=== PATIENT | male | born 1965 | race Caucasian/White ===

== ENCOUNTER 2021-08-22 01:57 | Emergency (ER) | payer SELFPAY ==
--- NOTE | 2021-08-22 02:20 | EDM.PDOC ---
ED HPI GENERAL MEDICAL PROBLEM - General Chief Complaint: Upper Extremity Injury/Pain Stated Complaint: RIGHT ELBOW/FOREARM STRAIN Time Seen by Provider: 08/22/21 02:12 Source of Information: Reports: Patient History Limitations: Reports: No Limitations - History of Present Illness INITIAL COMMENTS - FREE TEXT/NARRATIVE: Patient presents to the ED from [facility]. 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 It did not move much so he gave a forceful shove and suddenly felt a " pop" in the right medial elbow area. This happened at about 23:00. He took some NSAIDS and continued to work. It cause he pain but no numbness or tingling. As his shift progressed he had significant pain and difficulty lifting anything and worse pain with supination of the right forearm at the elbow. Right handed, no previous injury to this arm. He is accompanied by security from [facility] Duration: Hour(s): Location: Reports: Upper Extremity, Right Quality: Reports: Throbbing Severity: Moderate Improves with: Reports: Immobilization Worsens with: Reports: Movement Associated Symptoms: Reports: No Other Symptoms Treatments [employer]: Reports: NSAIDS Right Arm Pain Score (Numeric/FACES): 1 - Related Data Allergies Allergy/AdvReac Type Severity Reaction Status Date / Time No Known Drug Allergies Allergy Other Verified 08/22/21 02:07 Home Meds: Home Meds Aspirin [Halfprin] 81 mg PO DAILY 08/22/21 [History] Past Medical History Cardiovascular History: Reports: CAD - Past Surgical History Cardiovascular Surgical History: Reports: Percutaneous Transluminal Angioplasty Social & Family History - Tobacco Use Tobacco Use Status *Q: Current Every Day Tobacco User Years of Tobacco use: 40 Packs/Tins Daily: 1 - Caffeine Use Caffeine Use: Reports: Coffee, Energy Drinks, Soda - Alcohol Use Alcohol Use History: Yes Alcohol Use Frequency: Socially - Recreational Drug Use Recreational Drug Use: No Drug Use in Last 12 Months: No Review of Systems - Review of Systems Review Of Systems: See Below Constitutional: Reports: No Symptoms. Denies: Chills, Fever Eyes: Reports: No Symptoms. Denies: Blurred Vision, Previous Injury Ears: Reports: No Symptoms. Denies: Pain Nose: Reports: No Symptoms. Denies: Clots, Congestion Mouth/Throat: Reports: No Symptoms Respiratory: Reports: No Symptoms. Denies: Shortness of Breath, Cough Cardiovascular: Reports: No Symptoms. Denies: Chest Pain, Palpitations GI/Abdominal: Reports: No Symptoms. Denies: Diarrhea, Nausea, Vomiting Genitourinary: Reports: No Symptoms. Denies: Dysuria Musculoskeletal: Reports: Joint Pain (right elbow) Skin: Reports: No Symptoms Neurological: Reports: No Symptoms Psychiatric: Reports: No Symptoms ED EXAM, GENERAL - Physical Exam Exam: See Below Exam Limited By: No Limitations General Appearance: Alert, WD/WN, No Apparent Distress Eye Exam: Bilateral Eye: EOMI, PERRL Ears: Normal External Exam Nose: Normal Inspection Throat/Mouth: Normal Lips, Normal Teeth, Normal Voice Head: Atraumatic Respiratory/Chest: No Respiratory Distress, Lungs Clear Cardiovascular: Regular Rate, Rhythm Extremities: Other (rigth elbow with pain on full exention with supination of the forearm. Pain is located at the joint line near the medial epicondyle. No pain to palpation of the extension muscle mass. No pain to palpation of the shoulder, wrist or fingers. normal sensation distally, good distal pulses, cap refill) Neurological: Alert, Oriented, CN II-XII Intact, Normal Cognition Course - Vital Signs Last Recorded V/S: Last Vital Signs Temp 36.4 C 08/22/21 01:58 Pulse 67 08/22/21 01:58 Resp 14 08/22/21 01:58 BP 165/95 H 08/22/21 01:58 Pulse Ox 98 08/22/21 01:58 - Orders/Labs/Meds Orders: Active Orders 24 hr Category Date Time Status Elbow Min 3V Rt [CR] Stat Exams 08/22/21 02:16 Ordered - Radiology Interpretation Free Text/Narrative:: no obvious fracture, question anterior fat pad sign. preliminary report only. official pending - Re-Assessments/Exams Free Text/Narrative Re-Assessment/Exam: 08/22/21 02:25 already taken pain medications. Will get an xray 08/22/21 02:55 concern for possible capsular injury. Will place in a sling. one handed work until cleared by orthopedics, patient needed to schedule. Instructed to not carry anything heavier than a coffee cup. needs to come out of the sling multiple times a day to work on full extension and flexion. Declines pain medicationas. Departure - Departure Time of Disposition: 02:46 Disposition: Home, Self-Care 01 Condition: Good Clinical Impression: Sprain of elbow, right - Discharge Information *PRESCRIPTION DRUG MONITORING PROGRAM REVIEWED*: Not Applicable *COPY OF PRESCRIPTION DRUG MONITORING REPORT IN PATIENT GUZMAN: Not Applicable Instructions: RICE Therapy for Routine Care of Injuries, [id number], Elbow Sprain Forms: ED Department Discharge, ED Return to Work/School Form Additional Instructions: Use Ice several times a day for 10 minutes for swelling, taking care to protect the skin from the ice. Take aleve twice a day or ibuprofen 600 mg every 6 hours for the next several days for swelling and inflammation. several times a day make sure you are extending the elbow to achieve full range of extension and flexion in a slow manner without causing increased pain. Follow up with orthop edics, until then one handed work and sling use for comfort Sepsis Event Note (ED) - Evaluation Sepsis Screening Result: No Definite Risk - Focused Exam Vital Signs: Vital Signs Temp Pulse Resp BP Pulse Ox 08/22/21 01:58 36.4 C 67 14 165/95 H 98 - My Orders Last 24 Hours: My Active Orders 08/22/21 02:16 Elbow Min 3V Rt [CR] Stat - Assessment/Plan Last 24 Hours: My Active Orders 08/22/21 02:16 Elbow Min 3V Rt [CR] Stat
== END 2021-08-22 03:05 | disposition home or self-care (01) ==
LOC: LL.ED 01:57
DX: S53.401A Unspecified sprain of right elbow, initial encounter (principal); F17.210 Nicotine dependence, cigarettes, uncomplicated; Z79.82 Long term (current) use of aspirin; X50.9XXA Other and unspecified overexertion or strenuous movements or postures, initial encounter
CPT/HCPCS: 73080-RT; 99283